=== PATIENT | female | born 1955 | race Caucasian/White ===

== ENCOUNTER → 2019-05-26 05:37 | Day surgery (SDC) | payer BC ==
[~2019-05-26 05:37] MED LIST: Acetaminophen TAB* 325 MG ONE; Acetaminophen TAB* 325 MG PO ONE; Buffered Lidocaine 1% SYRIN* 1 ML/SYRINGE INTRADERM ONE; Bupivacaine 0.5%* 50 ML MDV VIAL ONE; Clindamycin 900 MG/D5W BAG(*) 900 MG/50 ML BAG IVPB ONE; Dexamethasone IV* 4 MG/ML 1 ML (4 MG) ONE; DiMENhydriNATE IV* 50 MG/ML VIAL IV PUSH PRN; DiMENhydriNATE IV* 50 MG/ML VIAL ONE; Famotidine IV* 10 MG/ML 2 ML (20 mg) IV ONE; Famotidine IV* 10 MG/ML 2 ML (20 mg) ONE; Ketorolac INJ* 30 MG/ML 1 ML VIAL ONE; Lactated Ringers 1000 ML Bag* 1,000 ML IV SCH; Lidocaine 1% INJ* 10 MG/ML 30 ML SDV ONE; Midazolam* 1 MG/ML 2 ML VIAL (2 MG) ONE; Naloxone* 0.4 MG/ML 1 ML VIAL IV PRN; Ondansetron INJ* 2 MG/ML VIAL IV PRN; Ondansetron INJ* 2 MG/ML VIAL ONE; Propofol* 10 MG/ML 20 ML BTL ONE; Scopolamine 1.5 mg* PATCH TRANSDERM PRN; Scopolamine PATCH Remove* 1 NOTE MISC PATCH OFF ONE; diPHENhydraMINE IV* 50 MG/ML 1 ml VIAL (BENADRYL) IV PRN; fentaNYL* 50 MCG/ML 2 ML VIAL (100 MCG VIAL) IV PRN; fentaNYL* 50 MCG/ML 2 ML VIAL (100 MCG VIAL) ONE
--- NOTE | 2019-05-26 09:40 | BRIEFOPN ---
Brief Operative/Procedure Note - Operation Details Pre-Op Diagnosis: left nipple discharge Post-Op Diagnosis: left nipple discharge Procedures: left breast terminal duct excision Surgeon(s)/Proceduralists: Kimmy Britton Anesthesia: GETA Findings: left duct with clear discharge easily cannulated and excised Complications: none
[2019-05-26 10:17] VITALS: BP 121/84
--- NOTE | 2019-05-26 11:37 | OP ---
CC: Dr. Serina Thompson OPERATIVE REPORT: DATE OF OPERATION: 05/26/19 DATE OF : 55 SERVICE: General Surgery. ATTENDING SURGEON: Abby Loving MD. SOLDER MAKING SUPERVISOR: Kimmy So MD. ANESTHESIOLOGIST: Jasen Rowell MD. PRE-OP DIAGNOSIS: left nipple discharge POST-OP DIAGNOSIS: left nipple discharge OPERATIVE PROCEDURE: Left breast terminal duct excision. ESTIMATED BLOOD LOSS: Minimal, less than 10 cc. SPECIMENS: Left breast terminal duct and surrounding breast tissue. INDICATIONS FOR SURGERY: Ms. Spears is a very pleasant 63-year-old female with a history of left breast nipple discharge. She has had this for quite some time and has has had negative breast imaging. However, given the chronicity of this problem and her concern about it, she wished to undergo a terminal duct excision. She understood that the risks included but were not limited to bleeding, infection, injury to nearby structures. She understood the alternative and benefits as well and she wished to proceed. DESCRIPTION OF PROCEDURE: The patient was brought back to the operating room and placed on the operating table in the supine position. Sequential compression devices were placed in the bilateral lower extremities for DVT prophylaxis. Antibiotics were administered. General endotracheal anesthesia was induced and the patient's left breast was prepped and draped in normal sterile fashion. Prior to beginning the procedure, a time-out was performed verifying the patient's name, date of , and the procedure to be performed. The left nipple was examined. There was a clear consistent spot of clearish nipple discharge at the 1 o'clock position. It appeared to come from 1 single duct. This duct was easily cannulated with a small lacrimal probe. It was cannulated all the way almost to the hub of the lacrimal probe. After this duct was isolated, a periareolar incision was made. The skin was divided down through the subcutaneous tissue and then a flap was developed towards the nipple in the direction towards the ducts. The duct containing the lacrimal probe was isolated using careful dissection and it was followed distally all the way towards the dermis of the nipple. There appeared to be a small papillomatous structure near the exit of the terminal duct towards the nipple. This was also encircled with the end of the proximal duct. The duct was divided between two clamps very close to the dermis after the probe was removed , and then once this was done, the distal end was tied off using 4-0 Vicryl suture. The more proximal end was then dissected down towards the breast tissue and a surrounding cone of breast tissue around the terminal duct was removed. The sutures were marked in the usual fashion with a short suture at the superior margin, a medium length suture at the medial margin, and a long suture at the lateral margin. The terminal duct itself was tied off with a double suture. After this was done, the specimen was carried off and attention was turned towards the breast cavity. Hemostasis was obtained. Irrigation was performed. Local anesthesia had been administered at the beginning of the surgery and also at the end of surgery. After hemostasis was obtained, the subdermal layer was closed using interrupted 4-0 Vicryl sutures and the skin was closed using running 4-0 Monocryl suture. Sterile dressing was then placed. The patient's anesthesia was reversed and she was taken to the PACU in stable condition. At the end of the case, all counts were correct and I was present during the entirety of the case. [id number] #: [id number] VIVIAN
== END | disposition home or self-care (01) ==
LOC: OR 05:37
PROVIDERS: ATTEND Surgery
DX: N64.52 Nipple discharge (principal); D24.2 Benign neoplasm of left breast; G47.33 Obstructive sleep apnea (adult) (pediatric); J45.909 Unspecified asthma, uncomplicated; M19.90 Unspecified osteoarthritis, unspecified site; K21.9 Gastro-esophageal reflux disease without esophagitis; Z88.0 Allergy status to penicillin
CPT/HCPCS: 88307; 88341; 88342; A9270-GY; J1100; J1240; J1885; J2250; J2405; J2704; J3010; J3490

== ENCOUNTER 2019-11-17 08:45 | Inpatient (IN) ==
[~2019-11-17 08:45] MED LIST changes: -Acetaminophen TAB* 325 MG ONE; -Acetaminophen TAB* 325 MG PO ONE; +Buffered Lidocaine 1% SYRIN 1 ml INTRADERM ONE; -Buffered Lidocaine 1% SYRIN* 1 ML/SYRINGE INTRADERM ONE; -Bupivacaine 0.5%* 50 ML MDV VIAL ONE; -Clindamycin 900 MG/D5W BAG(*) 900 MG/50 ML BAG IVPB ONE; -Dexamethasone IV* 4 MG/ML 1 ML (4 MG) ONE; -DiMENhydriNATE IV* 50 MG/ML VIAL IV PUSH PRN; -DiMENhydriNATE IV* 50 MG/ML VIAL ONE; +Famotidine IV 10 MG/ML 2 ml VIAL (20 mg) IV ONE; -Famotidine IV* 10 MG/ML 2 ML (20 mg) IV ONE; -Famotidine IV* 10 MG/ML 2 ML (20 mg) ONE; -Ketorolac INJ* 30 MG/ML 1 ML VIAL ONE; -Lactated Ringers 1000 ML Bag* 1,000 ML IV SCH; +Lactated Ringers 1000 ml BAG 1,000 ML IV SCH; -Lidocaine 1% INJ* 10 MG/ML 30 ML SDV ONE; -Midazolam* 1 MG/ML 2 ML VIAL (2 MG) ONE; -Naloxone* 0.4 MG/ML 1 ML VIAL IV PRN; -Ondansetron INJ* 2 MG/ML VIAL IV PRN; -Ondansetron INJ* 2 MG/ML VIAL ONE; -Propofol* 10 MG/ML 20 ML BTL ONE; -Scopolamine 1.5 mg* PATCH TRANSDERM PRN; -Scopolamine PATCH Remove* 1 NOTE MISC PATCH OFF ONE; -diPHENhydraMINE IV* 50 MG/ML 1 ml VIAL (BENADRYL) IV PRN; -fentaNYL* 50 MCG/ML 2 ML VIAL (100 MCG VIAL) IV PRN; -fentaNYL* 50 MCG/ML 2 ML VIAL (100 MCG VIAL) ONE
[2019-11-17] MEDS ORDERED: ROPIVACAINE 5 MG/ML 30 ML BTL (0.5%) ONE ×2 (09:07→09:40)
[2019-11-17] MEDS ORDERED: Famotidine IV 10 MG/ML 2 ml VIAL (20 mg) ONE (09:11)
[2019-11-17] MEDS ORDERED: Buffered Lidocaine 1% SYRIN 1 ml INTRADERM ONE (09:11)
[2019-11-17] MEDS ORDERED: Clindamycin 900 MG/D5W BAG 900 MG/50 ML BAG IVPB ONE (09:11)
[2019-11-17] MEDS ORDERED: Bupivacaine 0.5% SDV PF 30ML VIAL ONE (09:41)
[2019-11-17] MEDS ORDERED: Lidocaine 2% PF 5 ML VIAL ONE (09:56)
[2019-11-17] MEDS ORDERED: Magnesium Hydroxide LIQ 30 ML UDC PO PRN (10:38)
[2019-11-17] MEDS ORDERED: diPHENhydraMINE IV 50 MG/ML 1 ml VIAL (BENADRYL) IV PRN (10:38)
[2019-11-17] MEDS ORDERED: Ondansetron 4 mg VIAL 2 MG/ML 2 ml VIAL IV PRN ×2 (10:38→11:17)
[2019-11-17] MEDS ORDERED: Lactulose 30 ml UDC PO PRN (10:38)
[2019-11-17] MEDS ORDERED: diPHENhydraMINE 25 mg TAB PO PRN (10:38)
[2019-11-17] MEDS ORDERED: Ondansetron ODT 4 mg TAB 4 MG TAB PO PRN (10:38)
[2019-11-17] MEDS ORDERED: Morphine 2 MG/ML SYRINGE IV PRN (10:38)
[2019-11-17] MEDS ORDERED: Naloxone 0.4 mg VIAL 0.4 mg/ml 1 ml VIAL IV PRN (11:17)
[2019-11-17] MEDS ORDERED: HYDROmorphone 1 MG/1 ML SYRINGE IV PRN (11:17)
[2019-11-17] MEDS ORDERED: fentaNYL 100 mcg/2 ml 50 MCG/ML VIAL IV PRN (11:17)
[2019-11-17] MEDS ORDERED: HYDROmorphone 1 MG/1 ML SYRINGE IV SLOW PU PRN (12:50)
[2019-11-17] MEDS: Lactated Ringers 1000 ml BAG 1,000 ML IV SCH (14:40)
[2019-11-17] MEDS ORDERED: NS 0.9% 1000 ML/HR X 1 BAG (TOTAL 1000 ML) IV ONE (17:00)
[2019-11-17] MEDS: oxyCODONE/Acetamin 5/325 mg TAB PO PRN ×2 (17:54→23:35)
[2019-11-17] MEDS: Clindamycin 600 MG/D5W BAG 600 MG/50 ML BAG IV SCH (19:56)
[2019-11-17] MEDS: Magnesium Hydroxide LIQ 30 ML UDC PO SCH (20:09)
[2019-11-18] MEDS: Clindamycin 600 MG/D5W BAG 600 MG/50 ML BAG IV SCH ×2 (03:45→11:17)
[2019-11-18] MEDS: Lactated Ringers 1000 ml BAG 1,000 ML IV SCH (03:45)
[2019-11-18] MEDS: oxyCODONE/Acetamin 5/325 mg TAB PO PRN ×3 (03:46→12:10)
[2019-11-18 05:13] LABS: Hematocrit 30 % (35-47); Hemoglobin 10.4 g/dL (12.0-16.0); Mean Platelet Volume 8.3 fL (7.4-10.4); Platelet Count 186 10^3/uL (150-450)
[2019-11-18 05:29] LABS: BUN/Creatinine Ratio 17.3 (8-20); Calcium 8.8 mg/dL (8.6-10.3); EGFR African American 94.1 (>60); EGFR Non-African American 77.8 (>60); Potassium 4.2 mmol/L (3.5-5.0)
[2019-11-18] MEDS: Magnesium Hydroxide LIQ 30 ML UDC PO SCH (08:06)
[2019-11-18] MEDS ORDERED: Vitamin THERAPEUTIC TAB PO SCH (09:00)
[2019-11-18 14:18] VITALS: BP 130/62
== END 2019-11-18 14:55 | disposition home health service (06) | DRG 302 ==
LOC: AA 08:59 → SSU 10:38
PROVIDERS: ADMIT Orthopaedic Surgery Adult Reconstructive Orthopaedic Surgery; ATTEND Orthopaedic Surgery Adult Reconstructive Orthopaedic Surgery